=== PATIENT | male | born 1990 | race Caucasian/White ===

== ENCOUNTER 2024-12-02 10:00 | Day surgery (SDC) | payer OTHER ==
--- NOTE | 2024-11-26 09:36 | RAD REPORT ---
EXAMINATION: TWO VIEW CHEST XR CLINICAL INDICATION: Pre-op pending surgery TECHNIQUE: 2 views of the chest was performed. COMPARISON: No prior exam. FINDINGS: The lungs are well inflated and clear. The heart is normal in size. No displaced fractures evident. IMPRESSION: No acute or significant abnormalities.
[2024-11-26 10:14] LABS: Absolute Basophils 0.1 K/uL (0-0.5); Absolute Eosinophils 0.2 K/uL (0-0.5); Absolute Monocytes 0.6 K/uL (0.1-1.3); Absolute Neutrophil 3.5 K/uL (1.8-8.0); Basophils % 0.8 % (0-1.3); Hematocrit 43.1 % (39.6-49.0); Hemoglobin 14.5 g/dL (13.6-17.9); Lymphocytes % 32.1 % (15.3-44.8); MCHC 33.8 g/dL (32.0-36.0); MPV 7.3 fL (7.6-11.3); Monocytes % 9.6 % (3.3-12.3); Neutrophils % 54.5 % (41.7-73.7); Nucleated Red Blood Cells % 0.1 % (0-0); Platelets 292 thou/uL (152-406); RBC Red Blood Cell Count 4.84 M/uL (4.33-5.43); Red Cell Distribution Width 12.8 % (12.1-15.2)
[2024-11-26 10:23] LABS: Anion Gap 9.1 mEq/L (5.0-15.0); Potassium 4.1 mEq/L (3.5-5.1)
[2024-11-26 10:30] LABS: PT Prothrombin Time 13.3 SECONDS (10-13.0); Protime INR 1.18
--- NOTE | 2024-11-27 08:38 | EKG ---
Test Date: 2024-11-26 Test Time: 09:20:52 Batter Out: URMILA MEASUREMENT RESULTS: Intervals: Rate: 56 AK: 138 QRSD: 92 QT: 414 QTc: 399 [place]: P: 39 AK: 138 QRS: 21 T: 18 INTERPRETIVE STATEMENTS: Sinus bradycardia Otherwise normal ECG No previous ECG available for comparison Electronically Signed On 11-27-24 08:35:53 CDT by Foreign Jackson
[2024-12-02] MEDS: Ringers Lactate 1,000 ML IV ONE (10:35)
[2024-12-02] MEDS ORDERED: FENTANYL CITR 100 MCG/2 ML ONE ×2 (13:34→15:45)
[2024-12-02] MEDS ORDERED: ONDANSETRON 4 MG/2 ML VIAL ONE (13:34)
[2024-12-02] MEDS ORDERED: LIDOCAINE 1% MPF 5 ML VIAL ONE (13:34)
[2024-12-02] MEDS ORDERED: propofoL 200 MG/20 ML VIAL IV ONE (13:34)
[2024-12-02] MEDS ORDERED: KETOROLAC 30 MG/ML INJ ONE (13:34)
[2024-12-02] MEDS ORDERED: MIDAZOLAM HCL 2 MG/2 ML INJ ONE (13:35)
[2024-12-02] MEDS ORDERED: CEFAZOLIN SODIUM 1 GM/VIAL ONE (14:11)
[2024-12-02] MEDS ORDERED: CEFAZOLIN SODIUM 2 GM/VIAL ONE (14:14)
[2024-12-02] MEDS: CLINDAMYCIN 600MG/D5W 50 ML IV ONE (14:45)
[2024-12-02] MEDS ORDERED: GLYCOPYRROLATE 0.2 MG/ML SYR ONE (15:10)
[2024-12-02] MEDS: BUPIVACAINE 0.25% PF 30 ML VIAL ONE (15:11)
[2024-12-02 16:33] VITALS: O2SAT 100
[2024-12-02] MEDS ORDERED: HYDROCODONE/APAP 5/325 MG TAB PO PRN (16:42)
--- NOTE | 2024-12-02 17:06 | P.OP ---
Date of Service: 12/02/24 Preoperative diagnosis: Persistent/refractory left inguinal-scrotal pain h/o left inguinal hernia repair with mesh Left varicocele Postoperative diagnoses: Persistent/refractory left inguinal-scrotal pain h/o left inguinal hernia repair with mesh Left varicocele Principal procedures: Left inguinal exploration Denervation of the left spermatic cord Left varicocelectomy Intraoperative Doppler ultrasound Indication for procedure: 34-year-old gentleman presented to urology clinic with a history of inguinal hernia repair with mesh who postoperatively developed severe left inguinal to scrotal pain that has persisted and is refractory at attempts at medical management. He underwent evaluation including scrotal ultrasound as well as a CT scan which were unremarkable except for the presence of a varicocele on the left. Attempts at medication management failed; so a left cord block was performed and did successfully significantly relieve his pain with a duration of the half-life of the Marcaine lidocaine mixture given. As a result, he was counseled on the potential to relieve his pain by denervating the cord. Given the presence of the varicocele, I will perform a varicocelectomy simultaneously. Procedure note: The patient was consented in the preoperative holding area before being transferred to the operative suite where general anesthesia was induced. He was given clindamycin 600 mg IV antimicrobial prophylaxis, and pneumoboots were provided for DVT prophylaxis. He was placed supine on the procedure table, pad ded and secured appropriately. His inguinal region was shaved, prepped with Betadine and draped in standard fashion. A subinguinal Nakita's line incision approximately 1.5 to 2 cm in length was marked at the level beneath the internal inguinal ring and instilled subcutaneously with quarter percent Marcaine. I then incised the skin with a 15 blade and deepened through the subcutaneous tissues with electrocautery. I used a wheat [place] retractor to ultimately get down to Carlos's fascia and then beneath it to visualize the cord. I then the tunica vaginalis from the cord in an anteroposterior direction before encircling the cord digitally and placing a [place] beneath it to elevated into the operative field. I then continued to separate each of the vascular structures and identified the vas deferens within the cord. Doppler ultrasound was used to identify arteries, and the testicular artery was identified medially within the cord and the vasa artery was identified laterally next to the vas deferens. I the vas deferens and its basal artery and retracted it off laterally. I then the bulk of the dilated veins, consisting of the varicocele, and the other nerve structures within the cremasteric fibers from the testicular artery, and I ligated each of the dilated veins proximally and distally using 3-0 silk suture, dividing the vein in between. At least 4 different dilated venous vessels were ligated and divided. Additional cremasteric fibers and nervous tissue otherwise identified was ligated and divided also using electrocautery. In the end, I had down to the adventitia of the vas and the vasa artery, and down to the adventitia of the left testicular artery with only 1 main testicular vein next to it draining the testicle accordingly. These were left intact. I then assessed the entirety of the inguinal region and ensured that any additional nerve structures emanating from within the inguinal canal heading toward the testis were successfully ligated and divided in order to ensure absence of any source for pain. I then visualized the superior portion of the epididymis by pushing the testicle into the lower part of the inguinal canal incision site, but I did not deliver the testis into the inguinal canal, as the incision was a bit small. I palpated along the head of the epididymis, and no additional concerning mass lesions were appreciable. As a result, I irrigated the subcutaneous tissues and around the cord. I injected the cord itself with quarter percent Marcaine optimally and distally, and then reapproximated the subcutaneous tissues and dartos layers using 3-0 Vicryl suture before suturing the skin with 4-0 Monocryl. Dermabond was used to seal the skin, and the patient was awakened from general anesthesia. He was then transferred to a stretcher before being transferred to the recovery room in good condition. Complications: None Discharge disposition: He should be scheduled for follow-up wound check and assessment of his pain in approximately 1 to 2 weeks time.
[2024-12-02 17:20] VITALS: BP 123/84; TEMP 97
== END 2024-12-02 18:02 | disposition home or self-care (01) ==
LOC: OR 10:00
PROVIDERS: ATTEND Urology
PROC: 0VBG0ZZ Excision of Left Spermatic Cord, Open Approach (ICD-10-PCS; principal; 2024-12-02 14:30)
DX: I86.1 Scrotal varices (principal); N50.82 Scrotal pain; N50.812 Left testicular pain; N50.3 Cyst of epididymis; N39.8 Other specified disorders of urinary system; R10.32 Left lower quadrant pain; R39.9 Unspecified symptoms and signs involving the genitourinary system
CPT/HCPCS: 55530; 55899; 93005; 87088; 85025; 87086; 80048; 36415; 85610; 71046; J2704; J2003; J2250; J3010 ×2; J2405; J7120; J0690